=== PATIENT | female | born 1970 | race African-American/Black ===

== ENCOUNTER 2018-09-24 07:09 | Emergency (ER) | payer SELFPAY ==
[2018-09-24] MEDS ORDERED: LIDOCAINE 2% VISCOUS SOLN 20 ML UDCUP PO ONE (09:25)
--- NOTE | 2018-09-24 09:39 | ER Document Report ---
HPI - HPI Time Seen by Provider: 09/24/18 09:17 Pain Level: 1 Context: Patient is a 48-year-old female presents to the emergency department with a chief complaint of foreign body in her left ear. Patient states she woke up this morning prior to arrival when she heard a buzzing and had left ear discomfort. Patient states she can feel the object moving around and is pretty sure that is an insect. Patient states that she is having ear pain when the insect moves. Patient denies any other complaints. - EENT EENT: REPORTS: Ear Pain - left - REPRODUCTIVE Reproductive: DENIES: : Past Medical History - General Information source: Patient - Social History Smoking Status: Current Every Day Smoker Chew tobacco use (# tins/day): No Frequency of alcohol use: None Drug Abuse: Marijuana Family History: CVA, Malignancy Patient has suicidal ideation: No Patient has homicidal ideation: No - Past Medical History Cardiac Medical History: Reports: None Pulmonary Medical History: Reports: None EENT Medical History: Reports: None Neurological Medical History: Reports: None Endocrine Medical History: Reports: None Renal/ Medical History: Reports: None. Denies: Hx Peritoneal Dialysis Malignancy Medical History: Reports: None GI Medical History: Reports: Hx Ulcer, Hx Colonoscopy, Hx Endoscopic Retrograde Cholangio Musculoskeletal Medical History: Reports None Skin Medical History: Reports None Psychiatric Medical History: Reports: None Traumatic Medical History: Reports: None Infectious Medical History: Reports: None Past Surgical History: Reports: Hx Section - Immunizations Hx Diphtheria, Pertussis, Tetanus Vaccination: No Vertical Provider Document - CONSTITUTIONAL Agree With Documented VS: Yes Exam Limitations: No Limitations General Appearance: Mild Distress - INFECTION CONTROL TRAVEL OUTSIDE OF THE [place] IN LAST 30 DAYS: No - HEENT HEENT: Atraumatic, Normocephalic, PERRLA Notes: Tenderness noted to the left tragus. Patient's external pinna of the left ear unremarkable with no edema or tenderness. There does appear to be an insect in the left ear canal that will intermittently move. The left tympanic membrane was easily visualized. Landmarks within normal limits. There is no erythema, edema or exudate. - NECK Neck: Normal Inspection - RESPIRATORY Respiratory: Breath Sounds Normal, No Respiratory Distress - CARDIOVASCULAR Cardiovascular: Regular Rate, Regular Rhythm - GI/ABDOMEN Gastrointestinal: Abdomen Soft, Abdomen Non-Tender - BACK Back: Normal Inspection - NEURO Level of Consciousness: Awake, Alert, Non-Verbal - DERM Integumentary: Warm, Dry, No Rash Course - Re-evaluation Re-evalutation: 09/24/18 09:38 There appears to be an insect in the left ear canal. It does appear that it is alive as it will intermittently move. I will attempt to kill the insect with viscous lidocaine. Once the insect is I will remove it appropriately. I did explain the plan with the patient and family member at the bedside. - Vital Signs Vital signs: Temp Pulse Resp BP Pulse Ox 97.6 F 86 16 122/80 97 09/24/18 07:13 09/24/18 07:13 09/24/18 07:13 09/24/18 07:13 09/24/18 07:13 Discharge - Discharge Clinical Impression: Foreign body in left ear, initial encounter Condition: Stable Disposition: HOME, SELF-CARE Additional Instructions: Today you were seen in the emergency department for an insect in the left ear. The insect was killed with a lidocaine based gel and was removed in one piece. Please return the emergency department if you have any drainage, continued ear pain, fever, headache hearing loss or any other concerning signs or symptoms. Foreign Object in the Ear Examination showed a foreign object in the ear. This can cause pain, swelling, infection, and decreased hearing. An ear foreign body should be removed promptly. Usually no further treatment is necessary following removal. If infection is already present, we prescribe antibiotic drops. Sometimes the object damages the eardrum. If hearing is not normal, or if an obvious injury was seen, another checkup is necessary. If there is continued drainage, continued earache, fever, headache, or hearing loss, come back for reexamination.
[2018-09-24 10:28] VITALS: BP 124/76
== END 2018-09-24 10:28 | disposition home or self-care (01) ==
LOC: ER 07:09
DX: T16.2XXA Foreign body in left ear, initial encounter (principal); H92.02 Otalgia, left ear; X58.XXXA Exposure to other specified factors, initial encounter; F17.200 Nicotine dependence, unspecified, uncomplicated
CPT/HCPCS: 99282; J3490

== ENCOUNTER 2020-03-18 04:28 | Emergency (ER) | payer BC ==
[2020-03-18 04:39] VITALS: BP 142/80
[2020-03-18 07:41] LABS: APPEARANCE,URINE SLIGHTLY-CLOUDY; BILIRUBIN,URINE NEGATIVE (NEGATIVE); COLOR,URINE YELLOW; GLUCOSE, URINE NEGATIVE (NEGATIVE); KETONES,URINE TRACE mg/dL (NEGATIVE); LEUKOCYTE ESTERASE,URINE TRACE (NEGATIVE); NITRITE,URINE NEGATIVE (NEGATIVE); PROTEIN,URINE NEGATIVE (NEGATIVE); URINE SPECIFIC GRAVITY 1.034
[2020-03-18] MEDS ORDERED: HYDROCODONE/ACETAMINOPHEN 5-325 MG (6 TAB/ER DISP) PO PRN (12:22)
[2020-03-18] MEDS ORDERED: KETOROLAC TROMETHAMINE 60 MG/2 ML SDV IM ONE (12:22)
[2020-03-18] MEDS ORDERED: PREDNISONE 20 MG TABLET PO ONE (12:22)
--- NOTE | 2020-03-18 12:25 | ER Document Report ---
ED General - General Chief Complaint: Low Back Pain Stated Complaint: LOW BACK PAIN AND LEG PAIN TRAVEL OUTSIDE OF THE [place] IN LAST 30 DAYS: No - HPI Notes: Chief Complaint: Low back pain radiating to left leg Historian: History obtained from patient HPI: This is a 49-year-old female complaining of left-sided low back pain rating down her left leg for 2 days. No known injury or trauma. Patient does stand on her feet for her job and says this exacerbated it the last few days. She denies any dysuria, hematuria, abdominal pain, nausea vomiting, chest pain, shortness of breath, fever, chills. No prior history of back surgeries. She denies incontinence, saddle anesthesia, lower extremity weakness or numbness. No treatments tried. ROS: Constitutional: no fevers. HEENT: no [place], sore throat, or vision changes. CV: no chest pain or palpitations. Resp: no cough or SOB. GI: no abdominal pain, or n/v/d. : no dysuria, hematuria, or incont. MSK: Low back pain radiating to left leg Skin: no rashes or itching. Neuro: no seizures, weakness, numbness, or confusion. Hematological: no ecchymosis or easy bleeding. Endocrine: no polyuria/polydipsia, no heat/cold intolerance. Psych: no SI/HI, AH/VH or memory loss. PMHx: Reviewed and agree as charted by RN. PSHx: Reviewed and agree as charted by RN. SOCHx: Reviewed and agree as charted by RN. FHX: No significant familial comorbid conditions directly related to patient complaint Current Medications: Reviewed and agree with the patient medications as charted by the RN. Allergies: Reviewed and agree with the listed allergies as charted by the RN Physical Exam: Vitals: Reviewed in chart as documented by RN. General: Alert and in NAD. Head: Normocephalic; atraumatic Eyes: PERRLA, Conjunctivae clear sclerae non-icteric bilat ENT: no soft palate swelling or uvular deviation Neck: trachea midline, no unilateral swelling/tenderness/lymphadenopathy CV: RRR, no M/R/G; symmetric distal pulses Resp: respirations even and unlabored, CTA bilat. GI: abd soft and nondistended. NTTP. normal BS. no masses/HSM. no CVAT bilat MSK: lumbar- no midline tenderness or deformity. Left paraspinous tenderness/spasm. No swelling or deformity. FROM of L spine. SLR neg right. SLR positive on left. Strength 5/5 and equal to BLE. no saddle anesthesia. sensation intact to BLE. pedal pulses 2+ to BLE. cap refill <3 sec Skin: warm, moist, good turgor. no rash/lesions Neuro: Alert and oriented X 4. following CN 2-12 intact. no unilateral weakness/numbness Psych: No SI/HI or AH/VH. Medical Decision-making/Differential Diagnosis: Consider various etiologies including but not limited to Lumbar strain/sprain, radiculopathy, degenerative disease, spinal stenosis, skin/soft tissue structure injury, MSK injury, strain/sprain, fracture (low prob), dislocation (low prob), given patients reassuring history and physical as well as the absence of danger signs (concerning for infection, compressive myelopathy, malignancy, etc) plan for conservative management in the ED with prednisone and IM Toradol in the ED since patient is driving home. Will DC with a sixpack of [place] as well as steroid burst and gabapentin. PCP follow-up in the next few days. I consel on danger signs that should prompt a return visit to the ED, close defined primary care/subspecialty follow-up, and prescriptions. Patient is neurologically intact. No concerns for cauda equina or compressive myelopathy. This course of action was discussed with the patient and/or family. They were amenable to this, verbalized understanding, and were without further questions. - Related Data Allergies/Adverse Reactions: Penicillins Allergy (Verified 09/24/18 07:11) Past Medical History - Social History Smoking Status: Current Every Day Smoker Chew tobacco use (# tins/day): No Frequency of alcohol use: None Drug Abuse: Marijuana Family History: CVA, Malignancy Patient has homicidal ideation: No Renal/ Medical History: Denies: Hx Peritoneal Dialysis GI Medical History: Reports: Hx Ulcer, Hx Colonoscopy, Hx Endoscopic Retrograde Cholangio Past Surgical History: Reports: Hx Section - Immunizations Hx Diphtheria, Pertussis, Tetanus Vaccination: No Physical Exam - Vital signs Vitals: Temp Pulse Resp BP Pulse Ox 98.2 F 83 18 142/80 H 96 03/18/20 04:35 03/18/20 04:35 03/18/20 04:35 03/18/20 04:35 03/18/20 04:35 Course - Vital Signs Vital signs: Temp Pulse Resp BP Pulse Ox 98.2 F 83 18 142/80 H 96 03/18/20 04:35 03/18/20 04:35 03/18/20 04:35 03/18/20 04:35 03/18/20 04:35 - Laboratory Results Laboratory Results Interpreted: 03/18/20 07:17 Urine Ketones TRACE H Urine Blood SMALL H Urine Urobilinogen 2.0 H Ur Leukocyte Esterase TRACE H Critical Laboratory Results Reviewed: No Critical Results - Radiology Results Critical Radiology Results Reviewed: No Critical Results Discharge - Discharge Clinical Impression: Left-sided low back pain with sciatica Condition: Stable Disposition: HOME, SELF-CARE Instructions: Sciatica ([facility]) Additional Instructions: no driving on pain medications or gabapentin. take meds as prescribed. follow up with your doctor in 2-3 days. return to the ER if your condition worsens. Referrals: MEHNAZ MIRELES MD [ACTIVE STAFF] - Follow up as needed
== END 2020-03-18 13:25 | disposition home or self-care (01) ==
LOC: ER 04:28
DX: M54.40 Lumbago with sciatica, unspecified side (principal); F17.200 Nicotine dependence, unspecified, uncomplicated; F12.10 Cannabis abuse, uncomplicated; Z88.0 Allergy status to penicillin
CPT/HCPCS: 99284; 96372; 81001; J1885; J7512

== ENCOUNTER 2020-03-23 08:25 | Emergency (ER) | payer BC ==
[2020-03-23 08:34] VITALS: BP 113/53
--- NOTE | 2020-03-23 09:06 | ER Document Report ---
HPI - HPI Time Seen by Provider: 03/23/20 08:52 Pain Level: 5 Context: Patient is a 49-year-old female who comes emergency department for chief complaint of lower back pain. She was seen several days ago and prescribed prednisone and gabapentin, she states she has taken these but she still has very tight muscles in her back, limited range of motion, and radiating pain down to the buttock and top of the leg. 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 She states that she was bending over while stacking these large trays and she feels like she pulled something. She states she woke up Sunday morning with pain and has worsened and then remained like this since that time. She denies any trauma, denies incontinence, focal numbness or weakness, fever/chills, history of IV drug abuse. She takes no daily medications. - REPRODUCTIVE LMP: age 36 Reproductive: DENIES: : Past Medical History - General Information source: Patient - Social History Smoking Status: Current Every Day Smoker Chew tobacco use (# tins/day): No Frequency of alcohol use: None Drug Abuse: Marijuana Lives with: Family Family History: CVA, Malignancy Renal/ Medical History: Denies: Hx Peritoneal Dialysis GI Medical History: Reports: Hx Ulcer, Hx Colonoscopy, Hx Endoscopic Retrograde Cholangio Past Surgical History: Reports: Hx Section - Immunizations Hx Diphtheria, Pertussis, Tetanus Vaccination: Yes Vertical Provider Document - CONSTITUTIONAL General Appearance: WD/WN, Mild Distress - Patient has difficulty standing straight, performing position changes, and appears to be in pain when doing so - INFECTION CONTROL TRAVEL OUTSIDE OF THE [place] IN LAST 30 DAYS: No - HEENT HEENT: Atraumatic, Normocephalic - NECK Neck: Normal Inspection - RESPIRATORY Respiratory: Breath Sounds Normal, No Respiratory Distress - CARDIOVASCULAR Cardiovascular: Regular Rate, Regular Rhythm - GI/ABDOMEN Gastrointestinal: Abdomen Soft, Abdomen Non-Tender. negative: Abdomen Tender - BACK Back: negative: Normal Inspection - Spasm of muscles along the paralumbar mu sculature up to the parathoracic musculature on the left. No midline tenderness, no saddle anesthesia, no signs of trauma. Normal upper and lower extremity range of motion, normal strength, normal distal neurovascular exam. - MUSCULOSKELETAL/EXTREMETIES Musculoskeletal/Extremeties: FLOYD HALL, Non-Tender - NEURO Level of Consciousness: Awake, Alert, Appropriate Motor/Sensory: No Motor Deficit, No Sensory Deficit Course - Re-evaluation Re-evalutation: Patient has difficulty standing straight, she does not have midline tenderness but I can feel a spasm area all the way from her paralumbar musculature up to her parathoracic musculature. She has a lot of difficulty twisting and a lot of trouble making position changes. She does not have a positive straight leg raise, axial loading, or any other sign that she has herniated disc however. She has no neurological deficits or fever. She had no injury to the back itself although she does have a history very suggestive of back strain leading to significant muscle spasms that I am seeing on exam. I do not suspect another etiology based on her evaluation, normal distal pulses, no abdominal pain, no fever or IV drug abuse history. Patient will be treated with Valium because she has had development of significant spasms after discussing options. I discussed expectations, follow-up, return precautions. Patient states appreciation and agreement. Stable at time of discharge. - Vital Signs Vital signs: Temp Pulse Resp BP Pulse Ox 99.0 F 68 16 113/53 L 98 03/23/20 08:31 03/23/20 08:31 03/23/20 08:31 03/23/20 08:31 03/23/20 08:31 - Laboratory Results Critical Laboratory Results Reviewed: No Critical Results - Radiology Results Critical Radiology Results Reviewed: No Critical Results Discharge - Discharge Clinical Impression: Lower back pain Qualifiers: Chronicity: acute Back pain laterality: left Sciatica presence: without sciatica Qualified Code(s): M54.5 - Low back pain Condition: Stable Disposition: HOME, SELF-CARE Additional Instructions: Your evaluation indicates muscle spasms in your paraspinal muscles along the left side of your back. I believe you had an initial injury and then developed the muscle spasms. I recommend the muscle relaxer and anti-inflammatory as prescribed, heat to the area, gentle stretches and massage. This should simply go away with time. Follow-up with primary care for additional management. Come back if you are worse including if you have a trouble controlling your bowel or bladder, you develop fever, severe worsening pain, numbness, or any other concerning or worsening symptoms. Prescriptions: Naproxen 500 mg PO BID PRN #20 tablet PRN Reason: Diazepam [Valium 5 mg Tablet] 1 - 2 tab PO TID PRN #15 tablet PRN Reason: Forms: Return to Work
== END 2020-03-23 09:14 | disposition home or self-care (01) ==
LOC: ER 08:25
DX: M54.5 Low back pain (principal); F17.200 Nicotine dependence, unspecified, uncomplicated
CPT/HCPCS: 99283